=== PATIENT | male | born 1960 | race Caucasian/White ===

== ENCOUNTER 2017-10-21 17:05 | Inpatient (IN) | payer SELFPAY ==
[2017-10-21 18:27] LABS: Bacteria,Urine 2+ /HPF (Negative); Bilirubin,Urine NEG (Negative); Blood,Urine LG (Negative); Color,Urine Yellow (Yellow); Mucus,Urine FEW /HPF; Protein,Urine <15 mg/dL mg/dL (Negative)
[2017-10-21] MEDS ORDERED: FLOMAX PO ONE (21:20)
[2017-10-21] MEDS ORDERED: LEVAQUIN PO ONE (21:20)
--- NOTE | 2017-10-21 21:27 | Emergency Department Report ---
ED Male HPI - General Chief complaint: Abdominal Pain Stated complaint: URINARY INFECTION Time Seen by Provider: 10/21/17 20:23 Source: patient, offset printer Mode of arrival: Ambulatory Limitations: No Limitations - History of Present Illness Initial comments: Mr. Mora is a very pleasant 57-year-old male from [place] who presents for urinary retention and dysuria. For several hours prior to arrival he had sudden onset of lower pelvic abdominal pain with urgency to urinate. However he on ly had small amounts of urine expressed. He had also dysuria. He's concern for urinary tract infection. No history of urinary retention. No history of prostatitis. No history of prostate enlargement. He denies fever. Denies flank pain. Denies vomiting. He is otherwise very healthy. He is traveling from [facility] to his home country and [place]. He is here during a layover. He will be traveling 9 AM in the morning by plane. Patient is Estonian-speaking I used language line offset printer I used offset printer named Aleks #[id number] Complaint: dysuria, other (urinary retention) -: Sudden Severity: moderate Consistency: constant - Related Data Previous Rx's Medication Instructions Recorded Last Taken Type Ciprofloxacin HCl [Cipro] 500 mg PO BID #14 tablet 10/21/17 Unknown Rx Tamsulosin [Flomax] 0.4 mg PO QDAY 7 Days #7 cap 10/21/17 Unknown Rx Allergies Allergy/AdvReac Type Severity Reaction Status Date / Time No Known Allergies Allergy Unverified 10/21/17 17:27 ED Review of Systems ROS: Stated complaint: URINARY INFECTION Other details as noted in HPI Comment: All other systems reviewed and negative Constitutional: denies: fever, malaise Respiratory: denies: cough Cardiovascular: denies: chest pain ED Past Medical Hx - Past Medical History Previous Medical History?: No - Surgical History Past Surgical History?: No - Social History Smoking Status: Never Smoker Substance Use Type: None - Medications Home Medications: Home Medications Medication Instructions Recorded Confirmed Last Taken Type Ciprofloxacin HCl [Cipro] 500 mg PO BID #14 tablet 10/21/17 Unknown Rx Tamsulosin [Flomax] 0.4 mg PO QDAY 7 Days #7 cap 10/21/17 Unknown Rx ED Physical Exam - General Limitations: No Limitations General appearance: alert, in no apparent distress - Head Head exam: Present: atraumatic, normocephalic - Eye Eye exam: Present: normal appearance - ENT ENT exam: Present: mucous membranes moist - Neck Neck exam: Present: normal inspection - Respiratory Respiratory exam: Present: normal lung sounds bilaterally. Absent: respiratory distress, wheezes, rales, rhonchi - Cardiovascular Cardiovascular Exam: Present: regular rate, normal rhythm. Absent: systolic murmur, diastolic murmur, rubs, gallop - GI/Abdominal GI/Abdominal exam: Present: soft, normal bowel sounds. Absent: distended, tenderness, guarding, rebound - Rectal Rectal exam: Present: deferred - Extremities Exam Extremities exam: Present: normal inspection - Back Exam Back exam: Present: normal inspection - Neurological Exam Neurological exam: Present: alert, oriented X3 - Psychiatric Psychiatric exam: Present: normal affect, normal mood - Skin Skin exam: Present: warm, dry, intact, normal color. Absent: rash ED Course Vital Signs 10/21/17 10/21/17 17:10 21:35 Temperature 98.5 F Pulse Rate 112 H Respiratory 18 18 Rate Blood Pressure 148/85 O2 Sat by Pulse 99 98 Oximetry ED Medical Decision Making - Lab Data Laboratory Results - last 24 hr 10/21/17 18:15 Urine Color Yellow Urine Turbidity Clear Urine pH 6.0 Ur Specific [place] 1.006 Urine Protein <15 mg/dl Urine Glucose (UA) 50 Urine Ketones Neg Urine Blood Lg Urine Nitrite Neg Urine Bilirubin Neg Urine Urobilinogen 2.0 Ur Leukocyte Esterase Mod Urine WBC (Auto) 2.0 Urine RBC (Auto) 2.0 U Epithel Cells (Auto) < 1.0 Urine Bacteria (Auto) 2+ Urine Mucus Few - Medical Decision Making Mr. Mora presents for urinary retention. Differential diagnosis includes prostatitis versus benign prostatic hypertrophy. Prostatic neoplasm is not as likely with the presentation. However he understands that he will follow up with his primary physician once the returns to [place]. He received extensive education. He asked very intelligent questions. He asked for clarification several times. He understands the use and need for a leg bag, Flomax and ciprofloxacin. He understands that a voiding trial is necessary in the office of his primary physician. Prescriptions: Ciprofloxacin Flomax. I gave patient a copy of the urinalysis result according to his wishes. Upon reassessment, nurse informed me of persistent tachycardia. Patient does have mild tremor. He explains that he does drink alcohol daily. I suspect an element of alcohol withdrawal in addition to hypovolemia with recent urinary retention. Critical care attestation.: If time is entered above; I have spent that time in minutes in the direct care of this critically ill patient, excluding procedure time. ED Disposition Clinical Impression: Urinary retention, Urinary tract infection Disposition: TO HOME OR SELFCARE Is pt being admited?: No Does the pt Need Aspirin: No Condition: Stable Instructions: Urinary Retention in Men (ED), Urinary Tract Infection in Men (ED ), Luke Catheter Placement and Care (ED) Prescriptions: Ciprofloxacin HCl [Cipro] 500 mg PO BID #14 tablet Tamsulosin [Flomax] 0.4 mg PO QDAY 7 Days #7 cap Time of Disposition: 21:27 Print Language: PORTUGUESE
[2017-10-21] MEDS ORDERED: ZOFRAN IV ONE (22:02)
[2017-10-21] MEDS ORDERED: NACL 0.9% 1000 ML 1,000 ML IV ONE (22:02)
[2017-10-21] MEDS ORDERED: ATIVAN IV ONE (22:05)
[2017-10-21 22:13] LABS: Hematocrit 47.2 % (35.5-45.6); Hemoglobin 15.1 gm/dl (11.8-15.2); Mean Corpuscular HGB Conc 32 % (32-34); Mean Corpuscular Hemoglobin 31 pg (28-32); Mean Corpuscular Volume 98 fl (84-94); Platelet Count 233 K/mm3 (140-440); Red Blood Count 4.84 M/mm3 (3.65-5.03); Red Cell Distribution Width 13.5 % (13.2-15.2)
[2017-10-21 22:26] LABS: BUN/Creatinine Ratio 13; Blood Urea Nitrogen 12 mg/dL (9-20); Calcium 8.3 mg/dL (8.4-10.2); Hemolysis Index 5
[2017-10-21] MEDS ORDERED: cefTRIAXone 2 GM in NACL 0.9% 20 ML IV ONE (22:31)
--- NOTE | 2017-10-21 23:04 | XRay Report ---
FINAL REPORT EXAM: XR CHEST 1V AP HISTORY: tachycardia leukocytosis TECHNIQUE: upright single view chest PRIORS: None. FINDINGS: Cardiac and mediastinal contours are unremarkable. No focal pulmonary infiltrate is identified. No pleural fluid collection seen. Pulmonary vasculature is unremarkable. IMPRESSION: Negative single-view chest
[2017-10-21 23:22] LABS: Basophils % (Manual) 0 % (0.0-1.8); Total Cells Counted 200
[2017-10-21 23:23] LABS: Anisocytosis 1+; Eosinophils % (Manual) 0 % (0.0-4.3); Platelet Estimate Consistent w Auto
[2017-10-21 23:34] LABS: BUN/Creatinine Ratio 15; Blood Urea Nitrogen 12 mg/dL (9-20); Calcium 8.3 mg/dL (8.4-10.2); Hemolysis Index 6
[2017-10-21] MEDS ORDERED: NACL ONE (23:36)
[2017-10-21 23:39] LABS: Hematocrit 43.1 % (35.5-45.6); Hemoglobin 14.4 gm/dl (11.8-15.2); Mean Corpuscular HGB Conc 33 % (32-34); Mean Corpuscular Hemoglobin 32 pg (28-32); Mean Corpuscular Volume 96 fl (84-94); Platelet Count 234 K/mm3 (140-440); Red Blood Count 4.48 M/mm3 (3.65-5.03); Red Cell Distribution Width 13.7 % (13.2-15.2)
--- NOTE | 2017-10-22 00:34 | Cat Scan Report ---
FINAL REPORT EXAM: CTA Chest w Contrast CLINICAL INDICATIONS: HYPOXIC TACHYCARDIC TRANSATLANTIC FLIGHT FINDINGS: Contrast-enhanced CT angiography of the chest was performed. Sagittal and coronal MIP three-dimensional reformatted images were generated. These images demonstrate no CT evidence of pulmonary thromboembolic disease. There is no aortic dissection. There is bibasilar atelectasis. No acute consolidative pulmonary infiltrate is seen. There is no pleural or pericardial effusion. In the upper abdomen, there is fatty infiltration of the liver. There is a cyst in the medial segment left lobe of liver, 1.3 cm. IMPRESSION: NO CT EVIDENCE OF PULMONARY THROMBOEMBOLIC DISEASE
[2017-10-22 01:33] LABS: Band Neutrophils # (Manual) 0.1 K/mm3; Basophils % (Manual) 0 % (0.0-1.8); Eosinophils % (Manual) 0 % (0.0-4.3); Total Cells Counted 200
[2017-10-22 01:34] LABS: Anisocytosis 1+; Platelet Estimate Consistent w Auto
[2017-10-22] MEDS ORDERED: NACL 0.9% 1000 ML 1,000 ML IV ONE (01:46)
[2017-10-22] MEDS ORDERED: NACL 0.9% 1000 ML 2,000 ML IV ONE (01:48)
[2017-10-22] MEDS ORDERED: SODIUM CHLORIDE FLUSH SYRINGE 10 ML IV PRN (01:49)
[2017-10-22] MEDS ORDERED: ZOFRAN IV PRN (01:49)
--- NOTE | 2017-10-22 01:51 | History and Physical Report ---
History of Present Illness Date of examination: 10/22/17 History of present illness: 57-year-old man with no medical problems comes emergency room for evaluation for urinary retention, he has not urinated much in the last 21 hours and also dysuria. He also complained of passing small amount of blood in his urine. Patient was on his way from [facility] to [facility] where he [facility]. He was noted to be febrile in the emergency room Review of systems Constitutional: no weight loss, chills Ears, eyes, nose, mouth and throat: no nasal congestion, no nasal discharge, no sinus pressure, no vision change, no red eye. Neck: No neck pain or rigidity. Cardiovascular: no chest pain, palpitations Respiratory: No cough, shortness of breath Gastrointestinal: no abdominal pain, hematochezia Genitourinary : no dysuria, frequency , no hematuria Musculoskeletal: no joint swelling or muscle ache Integumentary: no rash, no pruritis Neurological: no parathesias, no numbness, no focal weakness Endocrine: no cold or heat intolerance, no polyuria or polydipsia Hematologic/Lymphatic: no easy bruising, no easy bleeding, no gland swelling Allergic/Immunologic: no urticaria, no angioedema. PAST MEDICAL HISTORY: None PAST SURGICAL HISTORY: None SOCIAL HISTORY: Denies alcohol, tobacco, drugs FAMILY HISTORY: Hypertension Medications and Allergies Allergies Allergy/AdvReac Type Severity Reaction Status Date / Time No Known Allergies Allergy Verified 10/22/17 01:55 Home Medications Medication Instructions Recorded Confirmed Last Taken Type Ciprofloxacin HCl [Cipro] 500 mg PO BID #14 tablet 10/21/17 Unknown Rx Tamsulosin [Flomax] 0.4 mg PO QDAY 7 Days #7 cap 10/21/17 Unknown Rx Active Meds: Active Medications Sodium Chloride (Nacl 0.9% 1000 Ml) 1,000 mls @ 999 mls/hr IV BOLUS ONE Stop: 10/22/17 02:46 Last Admin: 10/22/17 01:47 Dose: 999 mls/hr Exam - Physical Exam Narrative exam: Gen. appearance: Patient lying in bed, no apparent distress HEENT: Normocephalic, atraumatic, pupils equally round and reactive to light, extraocular movement intact, and no sclericterus,. No JVD or thyromegaly or nodule,neck supple, no carotid bruit ,mucous membranes moist, no exudate or erythema Heart: S1, S2, regular rate and rhythm Lungs: Clear to auscultation bilaterally, breathing comfortable Abdomen: Positive bowel sounds, nontender, nondistended, no organomegaly Extremity: No edema, cyanosis, clubbing Skin: No rash, nodules, warm, dry Neuro: Oriented 3, cranial nerves II-12 intact, speech is fluent, motor and sensory intact - Constitutional Vitals: Temp Pulse Resp BP Pulse Ox 99.5 F 137 H 29 H 129/75 93 10/22/17 00:10 10/22/17 00:15 10/22/17 00:15 10/22/17 00:15 10/22/17 00:15 Results - Labs CBC & Chem 7: 10/21/17 23:35 10/21/17 22:48 Labs: Abnormal lab results 10/21/17 10/21/17 10/21/17 Range/Units 22:05 22:05 22:48 WBC 21.9 H (4.5-11.0) K/mm3 Hct 47.2 H (35.5-45.6) % MCV 98 H (84-94) fl Seg Neuts % (Manual) 90.0 H (40.0-70.0) % Lymphocytes % (Manual) 6.0 L (13.4-35.0) % Seg Neutrophils # Man 19.7 H (1.8-7.7) K/mm3 Lymphocytes # (Manual) (1.2-5.4) K/mm3 Monocytes # (Manual) 0.9 H (0.0-0.8) K/mm3 D-Dimer 682.70 H (0-234) ng/mlDDU Sodium 133 L (137-145) mmol/L Chloride 91.7 L (98-107) mmol/L Glucose 123 H (75-100) mg/dL Lactic Acid (0.7-2.0) mmol/L Calcium 8.3 L (8.4-10.2) mg/dL 10/21/17 10/21/17 10/21/17 Range/Units 22:48 22:48 23:35 WBC 21.6 H (4.5-11.0) K/mm3 Hct (35.5-45.6) % MCV 96 H (84-94) fl Seg Neuts % (Manual) 90.5 H (40.0-70.0) % Lymphocytes % (Manual) 5.0 L (13.4-35.0) % Seg Neutrophils # Man 19.5 H (1.8-7.7) K/mm3 Lymphocytes # (Manual) 1.1 L (1.2-5.4) K/mm3 Monocytes # (Manual) 0.9 H (0.0-0.8) K/mm3 D-Dimer (0-234) ng/mlDDU Sodium 135 L (137-145) mmol/L Chloride 95.2 L (98-107) mmol/L Glucose 115 H (75-100) mg/dL Lactic Acid 2.10 H* (0.7-2.0) mmol/L Calcium 8.3 L (8.4-10.2) mg/dL - Imaging and Cardiology EKG: image reviewed Chest x-ray: image reviewed CT scan - chest: report reviewed Assessment and Plan Assessment Sepsis UTI Urinary retention, suspect BPH Plan Admit to medicine Start IV fluid, status post Rocephin, levaquin Start IV Zosyn, follow cultures CT abdomen and pelvis pending DVT prophylaxis
[2017-10-22] MEDS ORDERED: TYLENOL ONE ×2 (02:14→06:17)
[2017-10-22] MEDS: TYLENOL PO PRN ×2 (02:16→06:20)
[2017-10-22] MEDS ORDERED: NACL 0.9% 1000 ML 1,000 ML ONE ×2 (02:41→04:01)
--- NOTE | 2017-10-22 02:43 | Cat Scan Report ---
FINAL REPORT EXAM: CT A/P w/o Contrast CLINICAL INDICATIONS: ABD PAIN URINARY RETENSION FINDINGS: Unenhanced CT of the abdomen and pelvis was performed. The heart is normal in size. There is bibasilar atelectasis. Abdomen: there is fatty infiltration of the liver without focal hepatic lesion identified. The spleen is normal in size. The adrenal glands are within normal limits. No adrenal mass is seen. No focal pancreatic lesion is identified. there is no small or large bowel obstruction. There are bilateral renal cysts. The kidneys are excreting contrast in the patient's prior chest CT angiogram. There is no evidence of hydroureteronephrosis. Pelvis: There is a normal appendix. There is no evidence of diverticulitis. The prostate is enlarged measuring 6.3 x 6.3 x 6.3 cm for a calculated volume of approximately 130 cc which is very large. The urinary bladder is collapsed around a Luke catheter. IMPRESSION: ABDOMEN: BILATERAL RENAL CYSTS NO HYDROURETERONEPHROSIS PELVIS: ENLARGED PROSTATE
[2017-10-22] MEDS: NACL 0.9% 1000 ML 1,000 ML IV SCH ×2 (04:16→18:15)
[2017-10-22] MEDS: ZOSYN/NS 4.5GM/100ML 4.5 GM/100 ML VIAL IV SCH ×3 (04:16→20:55)
[2017-10-22] MEDS ORDERED: LOVENOX SUB-Q SCH (10:00)
--- NOTE | 2017-10-22 14:17 | Event Note ---
Date: 10/22/17 Patient seen and examined him medical records reviewed Admitted with fever and urinary tract infection On empiric antibiotics, follow cultures Elevated d-dimer , CTA negative for PE check lower extremity venous Doppler r/o DVT Agree with current management Possible discharge in 1-2 days if stable Plan of care discussed with the patient And bilingual patient rep Marisel
[2017-10-22] MEDS: SODIUM CHLORIDE FLUSH SYRINGE 10 ML IV SCH ×2 (18:17→21:57)
[2017-10-23] MEDS: NACL 0.9% 1000 ML 1,000 ML IV SCH ×3 (02:02→19:12)
[2017-10-23] MEDS: ZOSYN/NS 4.5GM/100ML 4.5 GM/100 ML VIAL IV SCH ×2 (06:15→12:04)
[2017-10-23 07:26] LABS: Basophils % (Auto) 0.1 % (0.0-1.8); Hematocrit 37.6 % (35.5-45.6); Hemoglobin 12.5 gm/dl (11.8-15.2); Lymphocytes # (Auto) 0.9 K/mm3 (1.2-5.4); Lymphocytes % (Auto) 5.6 % (13.4-35.0); Mean Corpuscular HGB Conc 33 % (32-34); Mean Corpuscular Hemoglobin 32 pg (28-32); Mean Corpuscular Volume 95 fl (84-94); Monocytes # (Auto) 1.4 K/mm3 (0.0-0.8); Monocytes % (Auto) 8.7 % (0.0-7.3); Platelet Count 172 K/mm3 (140-440); Red Blood Count 3.95 M/mm3 (3.65-5.03)
[2017-10-23 07:38] LABS: BUN/Creatinine Ratio 12; Blood Urea Nitrogen 11 mg/dL (9-20); Calcium 7.8 mg/dL (8.4-10.2); Hemolysis Index 4
[2017-10-23] MEDS: SODIUM CHLORIDE FLUSH SYRINGE 10 ML IV SCH ×2 (12:04→21:09)
--- NOTE | 2017-10-23 16:00 | Progress Note ---
Assessment and Plan Assessment and plan: --Febrile illness ; present on admission Secondary to urinary tract infection Continue supportive care --Sepsis secondary to urinary tract infection; present on admission Empiric antibiotics, urine cultures positive for gram-negative rods Pending sensitivities, continue current antibiotics --Lactic acidosis; second to sepsis, resolved --Leukocytosis; secondary to UTI, trending down --Elevated d-dimer as; negative for PE and negative for DVT --DVT prophylaxis; Lovenox Disposition; follow sensitivities, and if patient is stable may be discharged home tomorrow on oral antibiotics Plan of care is reviewed with the patient and his nurse Personally discussed with microbiology for sensitivities, they'll be ready by tomorrow History Interval history: Patient seen and examined medical records reviewed Admitted with abdominal pain and urinary symptoms Being managed with empiric antibiotics Cultures positive for gram-negative rods Pending sensitivities Patient feels better anxious to go home No new complaints Hospitalist Physical - Constitutional Vitals: Temp Pulse Resp BP Pulse Ox 99.0 F 113 H 16 114/74 95 10/23/17 12:48 10/23/17 12:48 10/23/17 12:48 10/23/17 12:48 10/23/17 12:48 General appearance: Present: no acute distress, well-nourished - EENT Eyes: Present: PERRL, EOM intact - Neck Neck: Present: supple, normal ROM - Respiratory Respiratory effort: normal Respiratory: bilateral: diminished, negative: rales, rhonchi, wheezing - Cardiovascular Rhythm: regular Heart Sounds: Present: S1 & S2 - Extremities Extremities: no ischemia, No edema - Abdominal General gastrointestinal: soft, non-tender, non-distended, normal bowel sounds - Integumentary Integumentary: Present: clear, warm - Psychiatric Psychiatric: appropriate mood/affect, cooperative - Neurologic Neurologic: CNII-XII intact, moves all extremities Results - Labs CBC & Chem 7: 10/23/17 07:02 10/23/17 07:02 Labs: Laboratory Last Values WBC 15.7 K/mm3 (4.5-11.0) H 10/23/17 07:02 RBC 3.95 M/mm3 (3.65-5.03) 10/23/17 07:02 Hgb 12.5 gm/dl (11.8-15.2) 10/23/17 07:02 Hct 37.6 % (35.5-45.6) 10/23/17 07:02 MCV 95 fl (84-94) H 10/23/17 07:02 MCH 32 pg (28-32) 10/23/17 07:02 MCHC 33 % (32-34) 10/23/17 07:02 RDW 14.0 % (13.2-15.2) 10/23/17 07:02 Plt Count 172 K/mm3 (140-440) 10/23/17 07:02 Lymph % (Auto) 5.6 % (13.4-35.0) L 10/23/17 07:02 [place] % (Auto) 8.7 % (0.0-7.3) H 10/23/17 07:02 Eos % (Auto) 0.0 % (0.0-4.3) 10/23/17 07:02 Baso % (Auto) 0.1 % (0.0-1.8) 10/23/17 07:02 Lymph # 0.9 K/mm3 (1.2-5.4) L 10/23/17 07:02 [place] # 1.4 K/mm3 (0.0-0.8) H 10/23/17 07:02 Eos # 0.0 K/mm3 (0.0-0.4) 10/23/17 07:02 Baso # 0.0 K/mm3 (0.0-0.1) 10/23/17 07:02 Add Manual Diff Complete 10/21/17 23:35 Total Counted 200 10/21/17 23:35 Seg Neutrophils % 85.6 % (40.0-70.0) H 10/23/17 07:02 Seg Neuts % (Manual) 90.5 % (40.0-70.0) H 10/21/17 23:35 Band Neutrophils % 0.5 % 10/21/17 23:35 Lymphocytes % (Manual) 5.0 % (13.4-35.0) L 10/21/17 23:35 Reactive Lymphs % (Man) 0 % 10/21/17 23:35 Monocytes % (Manual) 4.0 % (0.0-7.3) 10/21/17 23:35 Eosinophils % (Manual) 0 % (0.0-4.3) 10/21/17 23:35 Basophils % (Manual) 0 % (0.0-1.8) 10/21/17 23:35 Metamyelocytes % 0 % 10/21/17 23:35 Myelocytes % 0 % 10/21/17 23:35 Promyelocytes % 0 % 10/21/17 23:35 Blast Cells % 0 % 10/21/17 23:35 Nucleated RBC % Not Reportable 10/21/17 23:35 Seg Neutrophils # 13.5 K/mm3 (1.8-7.7) H 10/23/17 07:02 Seg Neutrophils # Man 19.5 K/mm3 (1.8-7.7) H 10/21/17 23:35 Band Neutrophils # 0.1 K/mm3 10/21/17 23:35 Lymphocytes # (Manual) 1.1 K/mm3 (1.2-5.4) L 10/21/17 23:35 Abs React Lymphs (Man) 0.0 K/mm3 10/21/17 23:35 Monocytes # (Manual) 0.9 K/mm3 (0.0-0.8) H 10/21/17 23:35 Eosinophils # (Manual) 0.0 K/mm3 (0.0-0.4) 10/21/17 23:35 Basophils # (Manual) 0.0 K/mm3 (0.0-0.1) 10/21/17 23:35 Metamyelocytes # 0.0 K/mm3 10/21/17 23:35 Myelocytes # 0.0 K/mm3 10/21/17 23:35 Promyelocytes # 0.0 K/mm3 10/21/17 23:35 Blast Cells # 0.0 K/mm3 10/21/17 23:35 WBC Morphology Not Reportable 10/21/17 23:35 Hypersegmented Neuts Not Reportable 10/21/17 23:35 Hyposegmented Neuts Not Reportable 10/21/17 23:35 Hypogranular Neuts Not Reportable 10/21/17 23:35 Smudge Cells Not Reportable 10/21/17 23:35 Toxic Granulation Not Reportable 10/21/17 23:35 Toxic Vacuolation Not Reportable 10/21/17 23:35 Dohle Bodies Not Reportable 10/21/17 23:35 Pelger-Huet Anomaly Not Reportable 10/21/17 23:35 Nazanin Rods Not Reportable 10/21/17 23:35 Platelet Estimate Consistent w auto 10/21/17 23:35 Clumped Platelets Not Reportable 10/21/17 23:35 Plt Clumps, EDTA Not Reportable 10/21/17 23:35 Large Platelets Not Reportable 10/21/17 23:35 Giant Platelets Not Reportable 10/21/17 23:35 Platelet Satelliting Not Reportable 10/21/17 23:35 Plt Morphology Comment Not Reportable 10/21/17 23:35 RBC Morphology Not Reportable 10/21/17 23:35 Dimorphic RBCs Not Reportable 10/21/17 23:35 Polychromasia Not Reportable 10/21/17 23:35 Hypochromasia Not Reportable 10/21/17 23:35 Poikilocytosis Not Reportable 10/21/17 23:35 Anisocytosis 1+ 10/21/17 23:35 Microcytosis Not Reportable 10/21/17 23:35 Macrocytosis Not Reportable 10/21/17 23:35 Spherocytes Not Reportable 10/21/17 23:35 Pappenheimer Bodies Not Reportable 10/21/17 23:35 Sickle Cells Not Reportable 10/21/17 23:35 Target Cells Not Reportable 10/21/17 23:35 Tear Drop Cells Not Reportable 10/21/17 23:35 Ovalocytes Not Reportable 10/21/17 23:35 Helmet Cells Not Reportable 10/21/17 23:35 [place] Bodies Not Reportable 10/21/17 23:35 Davis Rings Not Reportable 10/21/17 23:35 Raymon Cells Not Reportable 10/21/17 23:35 Bite Cells Not Reportable 10/21/17 23:35 Crenated Cell Not Reportable 10/21/17 23:35 Elliptocytes Not Reportable 10/21/17 23:35 Acanthocytes (Spur) Not Reportable 10/21/17 23:35 Rouleaux Not Reportable 10/21/17 23:35 Hemoglobin C Crystals Not Reportable 10/21/17 23:35 Schistocytes Not Reportable 10/21/17 23:35 Malaria parasites Not Reportable 10/21/17 23:35 Torey Bodies Not Reportable 10/21/17 23:35 Hem Pathologist Commnt No 10/21/17 23:35 D-Dimer 682.70 ng/mlDDU (0-234) H 10/21/17 22:48 Sodium 133 mmol/L (137-145) L 10/23/17 07:02 Potassium 4.2 mmol/L (3.6-5.0) 10/23/17 07:02 Chloride 100.8 mmol/L (98-107) 10/23/17 07:02 Carbon Dioxide 22 mmol/L (22-30) 10/23/17 07:02 Anion Gap 14 mmol/L 10/23/17 07:02 BUN 11 mg/dL (9-20) 10/23/17 07:02 Creatinine 0.9 mg/dL (0.8-1.5) 10/23/17 07:02 Estimated GFR > 60 ml/min 10/23/17 07:02 BUN/Creatinine Ratio 12 % 10/23/17 07:02 Glucose 102 mg/dL (75-100) H 10/23/17 07:02 Lactic Acid 1.40 mmol/L (0.7-2.0) 10/22/17 04:46 Calcium 7.8 mg/dL (8.4-10.2) L 10/23/17 07:02 Urine Color Yellow (Yellow) 10/21/17 18:15 Urine Turbidity Clear (Clear) 10/21/17 18:15 Urine pH 6.0 (5.0-7.0) 10/21/17 18:15 Ur Specific [place] 1.006 (1.003-1.030) 10/21/17 18:15 Urine Protein <15 mg/dl mg/dL (Negative) 10/21/17 18:15 Urine Glucose (UA) 50 mg/dL (Negative) 10/21/17 18:15 Urine Ketones Neg mg/dL (Negative) 10/21/17 18:15 Urine Blood Lg (Negative) 10/21/17 18:15 Urine Nitrite Neg (Negative) 10/21/17 18:15 Urine Bilirubin Neg (Negative) 10/21/17 18:15 Urine Urobilinogen 2.0 mg/dL (<2.0) 10/21/17 18:15 Ur Leukocyte Esterase Mod (Negative) 10/21/17 18:15 Urine WBC (Auto) 2.0 /HPF (0.0-6.0) 10/21/17 18:15 Urine RBC (Auto) 2.0 /HPF (0.0-6.0) 10/21/17 18:15 U Epithel Cells (Auto) < 1.0 /HPF (0-13.0) 10/21/17 18:15 Urine Bacteria (Auto) 2+ /HPF (Negative) 10/21/17 18:15 Urine Mucus Few /HPF 10/21/17 18:15
[2017-10-23] MEDS ORDERED: LEVAQUIN PO SCH (20:00)
[2017-10-23 22:12] VITALS: BP 127/80
[2017-10-24] MEDS: NACL 0.9% 1000 ML 1,000 ML IV SCH (02:14)
--- NOTE | 2017-10-24 11:18 | Vascular Lab Report ---
LOWER EXTREMITY VENOUS DUPLEX: REASON FOR EXAM: Elevated D-dimer. COMMENTS ON THE RIGHT: All veins visualized are freely compressible without evidence of internal echogenicity. Flow is spontaneous and phasic throughout. COMMENTS ON THE LEFT: All veins visualized are freely compressible without evidence of internal echogenicity. Flow is spontaneous and phasic throughout. IMPRESSION: No evidence of acute or chronic deep venous thrombosis in either lower extremity.
== END 2017-10-24 06:26 | disposition left against medical advice (07) | DRG 872 ==
LOC: ED 17:05 → 4A 10-22 01:49 → 3A 10-23 11:53
PROVIDERS: ADMIT Internal Medicine; ATTEND Internal Medicine
DX: A41.9 Sepsis, unspecified organism (principal); N39.0 Urinary tract infection, site not specified; Z82.49 Family history of ischemic heart disease and other diseases of the circulatory system; Z88.0 Allergy status to penicillin; R33.9 Retention of urine, unspecified
CPT/HCPCS: 36415; 71045; 71275; 74176; 80048; 81001; 82140; 85007; 85025; 85379; 87040; 87076; 87086; 87186; 93005; 93010; 93970; 96361; 96365; 96375; J0696; J2060; J2405; J2543; J7030; Q9967